=== PATIENT | male | born 1940 | race Native Hawaiian/Other Pacific Islander ===

== ENCOUNTER 2019-03-09 10:55 | Outpatient (CLI) | payer OTHER | END 2019-03-09 11:17 | disposition short-term general hospital (02) | LOC: AMB 10:55 | DX: R06.09 Other forms of dyspnea (principal); R50.9 Fever, unspecified; R09.89 Other specified symptoms and signs involving the circulatory and respiratory systems | CPT/HCPCS: A0425; A0427 ==

== ENCOUNTER 2019-03-09 11:20 | Emergency (ER) | payer OTHER ==
[~2019-03-09] VITALS: Ht 182.9 cm; Wt 90.7 kg
[2019-03-09 12:30] LABS: PLATELET COUNT 153 K/uL (142-355)
[2019-03-09 12:37] LABS: POTASSIUM 3.8 mmol/L (3.6-5.2)
[2019-03-09 21:00] VITALS: BP 112/57; TEMP 98
== END 2019-03-09 21:00 | disposition short-term general hospital (02) ==
LOC: ED 11:25
PROVIDERS: Family Medicine
DX: A41.9 Sepsis, unspecified organism (principal); M31.30 Wegener's granulomatosis without renal involvement; N39.0 Urinary tract infection, site not specified; R00.0 Tachycardia, unspecified
CPT/HCPCS: 36415; 80053; 81000; 82550; 83605; 83880; 84484; 85027; 87040; 87077; 87086; 87088; 87185; 87186; 87205; 87502; 93005; 96360; 96365; 99284; J0696